=== PATIENT | male | born 1975 | race Caucasian/White ===

== ENCOUNTER 2023-03-11 12:51 | Emergency (ER) | payer BC ==
[~2023-03-11] VITALS: Ht 182.9 cm; Wt 79.4 kg
[2023-03-11 12:58] VITALS: BP_SYST 158; PULSE 70; RESP 22; TEMP 96.5; O2SAT 98
[2023-03-11] MEDS ORDERED: LORazepam 2 MG/ML VIAL IVP ONE ×3 (13:15→16:00)
[2023-03-11] MEDS ORDERED: NACL 0.9% 1,000 ML IV ONE (13:15)
[2023-03-11] MEDS ORDERED: ONDANSETRON HCL 4 MG/2 ML VIAL IVP ONE ×2 (13:15→15:00)
[2023-03-11 13:31] LABS: BASOPHILS % (AUTO) 0.3 % (0.0-2.0); EOSINOPHILS % (AUTO) 0.3 % (0.0-4.0); HEMATOCRIT 52.8 % (36-54); HEMOGLOBIN 16.9 g/dL (14.0-18.0); LYMPHOCYTES % (AUTO) 11.4 % (20.5-51.5); MEAN CORPUSCULAR HEMOGLOBIN 28 pg (27-31); MEAN CORPUSCULAR HGB CONC 32 % (32-36); MEAN CORPUSCULAR VOLUME 88 fL (79.0-98.0); MONOCYTES # (AUTO) 0.6 K/uL (0.0-1.0); MONOCYTES % (AUTO) 3.2 % (1.7-9.3); NEUTROPHILS % (AUTO) 84.8 % (40.0-70.0); PLATELET COUNT (AUTO) 309 K/uL (130-430); RED BLOOD CELL COUNT(AUTO) 6.01 MIL/uL (4.2-6.2); RED CELL DISTRIBUTION WIDTH 13.4 % (9.0-15.0); WHITE BLOOD COUNT (AUTO) 17.7 K/uL (4.8-10.8)
[2023-03-11 13:38] LABS: ANION GAP 17 (5-15); CALCIUM 9.3 mg/dL (8.4-11.0); CARBON DIOXIDE 23 mmol/L (23-29); CHLORIDE 97 mmol/L (98-107); CREATININE 1.07 mg/dL (0.55-1.30); GFR AFRICAN AMERICAN 95 mL/min (>90); GFR NON AFRICAN-AMERICAN 79 mL/min (>90); GLUCOSE 114 mg/dL (74-106); POTASSIUM 3.7 mmol/L (3.5-5.1); SODIUM SERUM 137 mmol/L (136-145); UREA NITROGEN, BLOOD 11 mg/dL (8-21)
[2023-03-11 13:45] LABS: ALANINE AMINOTRANSFERASE 38 U/L (12-78); ALBUMIN 4.2 g/dL (3.4-4.8); ALCOHOL, BLOOD 24 mg/dL (<10); ASPARTATE AMINOTRANSFERASE 47 U/L (10-37); BILIRUBIN,DIRECT 0.3 mg/dL (0.0-0.3); SALICYLATE 2 mg/dL (3-30); TOTAL BILIRUBIN 0.7 mg/dL (0.0-1.0)
[2023-03-11 13:50] LABS: ACETAMINOPHEN < 1 ug/mL (1-30)
[2023-03-11] MEDS ORDERED: THIAMINE HCL 100 MG/ML VIAL ONE (14:59)
[2023-03-11] MEDS ORDERED: THIAMINE HCL 100 MG in NS 50 ML IV ONE (15:00)
[2023-03-11] MEDS ORDERED: NS 500 ML IV ONE (15:00)
[2023-03-11 15:11] LABS: LIPASE 16 U/L (16-77)
[2023-03-11 15:24] LABS: ALCOHOL, BLOOD < 3 mg/dL (<10)
[2023-03-11] MEDS ORDERED: chlordiazePOXIDE HCL 25 MG CAPSULE PO ONE (15:45)
[2023-03-11 16:07] VITALS: BP_SYST 150; PULSE 74; RESP 20; TEMP 96.9; O2SAT 97
== END 2023-03-11 16:09 ==
LOC: SED 12:51
DX: F10.239 Alcohol dependence with withdrawal, unspecified (principal); R10.9 Unspecified abdominal pain; R11.2 Nausea with vomiting, unspecified; I10 Essential (primary) hypertension; F17.200 Nicotine dependence, unspecified, uncomplicated; Z79.899 Other long term (current) drug therapy; Y90.6 Blood alcohol level of 120-199 mg/100 ml
CPT/HCPCS: 99285; 96365; 71045; 96361; 96375; 80076; 80048; 82140; 83690; 85025; 84484; 36415; 93005; 96376; J2060; J2405; J3411; J7030; G0480; G0481; G0482